=== PATIENT | female | born 1960 | race Caucasian/White ===

== ENCOUNTER 2016-08-05 19:54 | Inpatient (IN) | payer MEDICARE, BC ==
--- NOTE | ~2016-08-05 | CR72 ---
[facility] A Service of [facility] RADIOLOGY TEXT RESULTS PATIENT: HUYEN CORRALES LOCATION: [facility] : 56 UNIT #: [id number] AGE: [address]: Corina Burton MD SEX: F ORDER DR: [id number] [facility] [address] [facility]. [place], [place] [address] [id number] I MR#: [id number] Acc #: [id number] NAME: HUYEN CORRALES : 1960 SEX: F STUDY DATE/TIME: 08/05/2016 21:03 UNIT: [facility] ROOM: [facility] STUDY DESCRIPTION: CR Chest Single View Portable Attending Physician: Corina Burton M.D. Ordering Physician: Nasreen Pryor M.D. Primary Care Physician: Edward Ramos M.D. MEDICAL IMAGING REPORT This report is preliminary unless electronic signature is present EXAM Portable chest HISTORY Lethargy, shortness of air and confusion today. FINDINGS Cardiac size and pulmonary vascularity are normal. No infiltrates or effusions are identified. Mild bibasilar linear atelectasis or scarring. Mild mid-right thoracic curve. IMPRESSION No acute findings. No active disease. Mild bibasilar linear atelectasis or scarring. Dictated by... Demian Nieto M.D. THIS IS AN ELECTRONICALLY VERIFIED REPORT Demian Nieto M.D. at 08/06/2016 10:34 PM DFL/to TD: 08/06/2016 08:26 JOB #: [id number] MEDICAL IMAGING REPORT Page 1 of 1 COPY
--- NOTE | ~2016-08-05 | EKG ---
PATIENT: HUYEN CORRALES UNIT #: [id number] Ventricular Rate: 87 BPM Atrial Rate: 87 BPM P-R Interval: 158 ms QRS Duration: 98 ms Q-T Interval: 404 ms QTC Calculation(Bezet): 486 ms P Berea: 26 degrees Calculated R Berea: -25 degrees Calculated T Berea: 29 degrees Diagnosis Line: Normal sinus rhythm Diagnosis Line: Low voltage QRS Diagnosis Line: Prolonged QT Diagnosis Line: Abnormal ECG Diagnosis Line: When compared with ECG of 18-OCT-2015 12:03, Diagnosis Line: No significant change was found Diagnosis Line: Confirmed by SEBLE HEREDIA MD ([id number]) on Diagnosis Line: 08/06/2016 10:05:56 PM INTERPRETING : DAQUAN
--- NOTE | ~2016-08-05 | CO ---
Unit #: [id number] #: [id number] Patient: KALEIGH MAGAÑA [id number] [address] [place], [place] [address] [id number] I MR#: [id number] NAME: KALEIGH MAGAÑA ROOM: 579 Age: 56 Sex: F Admission Date: 08/05/2016 : 1960 Attending Physician: Corina Burton M.D. Primary Care Physician: Edward Ramos M.D. Consultation Date: 08/07/2016 CONSULTATION REPORT REASON FOR CONSULTATION Followup. DISCUSSION Ms. Kaleigh Magaña is a 56-year-old white female, seen in room 579, bed 1 on 08/07/2016. The patient was transferred from ICU, feeling much better. The patient dressed in hospital attire, sitting in a propped up position, eating her breakfast. The patient compliant and cooperative. Denied any suicidal or homicidal ideation. Reports feeling much better. The patient was admitted with altered mental status secondary to polypharmacy. The patient denied any Intentional taking medication. Denied any suicidal or homicidal ideation. Denied any psychotic symptom at this time. REVIEW OF SYSTEMS Complete review of systems is unremarkable. MENTAL STATUS EXAMINATION Vital signs; temperature 98.6, pulse 93, respirations 16, blood pressure 116/50, oxygen saturation 98%. General appearance; the patient moderately obese, dressed casually in hospital attire, sitting comfortably in bed. Attention span and concentration, fair. Speech, regular rate and coherent. Oriented in time, place, and person. Mood and affect, sad and dysphoric. Thought process, coherent. Thought content, the patient denied any thoughts of harming self or others or any psychotic symptom. Recent and remote memory, fair. Language, intact. Fund of knowledge, fair. Insight and judgment, fair to slightly impaired. DIAGNOSIS Psychiatric: Major depressive disorder, recurrent, severe, F33.2. ASSESSMENT/PLAN 1. Supportive psychotherapy and psychoeducation provided to the patient. 2. Educated about benefits and side effects of medication and course and prognosis of illness. 3. Advised the patient to follow up on the outpatient basis upon discharge and advised not to take Adderall. Advised to take only hydroxyzine 25 mg t.i.d. p.r.n. for anxiety. The patient was also given crisis line #[id number]. Dictated by... Kendrick Negrete M.D. Unit #: [id number] #: [id number] Patient: KALEIGH MAGAÑA LUCINDA/modl TD: 08/07/2016 23:35 JOB #: [id number] CONSULTATION REPORT Page 1 of 1 X Kendrick Negreet MD X CONSULTATION REPORT
--- NOTE | ~2016-08-05 | HP ---
Unit #: [id number] #: [id number] Patient: HUYEN MAGAÑA [id number] [address] [place], [place] [address] [id number] I MR#: [id number] NAME: HUYEN MAGAÑA ROOM: 579 Age: 56 Sex: F Admission Date: 08/05/2016 : 1960 Attending Physician: Corina Burton M.D. Primary Care Physician: Dr. Aguirre HISTORY AND PHYSICAL PRINCIPAL DIAGNOSES 1. Altered mental status secondary to polypharmacy. 2. Polypharmacy, likely a combination of both unintentional and intentional. 3. Acute hypoxic respiratory failure secondary to altered mental status, now resolved. 4. Hypotension, likely medication induced. 5. Hypokalemia, resolved. 6. Diabetes mellitus type 2, insulin requiring with pending hemoglobin A1C. 7. Depression. 8. Chronic pain syndrome, maintained on narcotics. 9. Obesity. 10. Obstructive sleep apnea with reported recent normal polysomnography. 11. Mild protein malnutrition. 12. Chronic deconditioning. CONSULTANTS 1. Dr. Briceño, pulmonology. 2. Dr. Negrete, psychiatry. DIAGNOSTIC STUDIES IMAGING: CT of the head without contrast on August 05, 2016 with no acute intracranial abnormality. Mild diffuse chronic changes noted. Chest x-ray on August 05, 2016 with no acute findings. Bibasilar linear atelectasis noted. CLINICAL HISTORY AND HOSPITAL COURSE Ms. Magaña is a 56-year-old female who presents to the emergency department after being found with significantly decreased mental status in a [employer]. Please refer to H and P for further details. Patient was found to be hypoxic and hypercapnic and was placed on BiPAP initially and admitted to the ICU. Dr. Briceño was consulted given the patient's hypoxia and hypercapnia; however, with BiPAP therapy and holding of many sedating medications, patient's mental status returned to normal. She was transitioned to off BiPAP to oxygen, and now oxygen saturations are in the high 90s off of oxygen therapy. There has been no evidence of pneumonia, no evidence of aspiration and no need for antibiotic therapy. In regard to the patient's altered mental status, the patient underwent cardiac evaluation with serial troponins, screening for infectious Unit #: [id number] #: [id number] Patient: HUYEN MAGAÑA etiology, and all this was negative. However, the patient is on multiple sedating medications at home. While obtaining medications, I was informed by pharmacy that the patient, on the day she was found at [facility], was also asking for large amounts of Dramamine and Benadryl. However, the patient does not directly state she was trying to hurt herself. I did have her evaluated by Dr. Negrete of psychiatry who recommended holding all of her sedating medications and further evaluation with her primary psychiatrist, Dr. Jose Varner, as an outpatient. I will also note the patient was recently prescribed 360 tablets of a benzodiazepine, but these were not in her system during hospitalization. The patient also developed some mild hypotension, likely medication inducted in combination with, what she states is, chronic hypotension. I am going to hold all of her medications which induce hypotension, and blood pressure can be monitored by home health nurse at home. The patient today is clinically stable. She has been seen by physical therapy, is at her baseline and will be discharged home today. DISCHARGE CONDITION Stable. DISCHARGE STATUS Discharge to home with home health. DISCHARGE MEDICATIONS (significantly reduced and include) 1. Lamictal 200 mg b.i.d. 2. Hydroxyzine 25 mg p.o. t.i.d. p.r.n. anxiety. 3. Senokot S 1 tablet daily p.r.n. constipation. 4. Docusate 1 tab p.o. daily p.r.n. constipation. 5. Lantus 34 units subcutaneously b.i.d. 6. Axid 150 mg b.i.d. 7. Lortab 10/325 mg 1 tablet p.o. q.i.d. p.r.n. pain. 8. Lansoprazole 30 mg b.i.d. 9. Os-Miguel 500 plus D 1 b.i.d. 10. Klor-Con sprinkle 1 tablet b.i.d. 11. Flexeril 10 mg p.o. t.i.d. p.r.n. muscle spasm. 12. Vitamin D3 Dots 2,000 units p.o. daily. NOTE: Of note, I have discontinued black cohosh, Imdur ER, Bumex, Metoprolol, Klonopin, Compazine, Phenergan and Cymbalta. I will note these are the only medications we are aware of through [facility] pharmacy. Patient also has a mail order pharmacy, and these medications are unclear. Adderall has also been discontinued per Dr. Negrete's recommendations. DISCHARGE INSTRUCTIONS Patient instructed to follow a heart healthy, constant carb diet. She will continue Accu-Cheks a.c. and h.s. at home. She can increase her activity as tolerated at home and should not be changed from these medications until seen by her primary physician. FOLLOW-UP 1. Patient will follow up with her primary care provider, which she believes is Dr. Aguirre, in one week. 2. She will follow up with her primary psychiatrist, Dr. Jose Varner, in 1 week, as well, to reinitiate medications. NOTE: Time spent on discharge - 33 minutes. Unit #: [id number] #: [id number] Patient: HUYEN MAGAÑA Dictated by Geovanna Goff/logan TD: 08/07/2016 11:06 JOB #: [id number] CC: Dr. Jose Varner, Psychiatrist Edward Ramos M.D. HISTORY AND PHYSICAL Page 1 of 1 X Corina Burton MD X HISTORY AND PHYSICAL
--- NOTE | ~2016-08-05 | CO ---
Unit #: [id number] #: [id number] Patient: KALEIGH MAGAÑA [id number] [facility] [address] [facility]. [place], [place] [address] [id number] I MR#: [id number] NAME: KALEIGH MAGAÑA ROOM: 579 Age: 56 Sex: F Admission Date: 08/05/2016 : 1960 Attending Physician: Corina Burton M.D. Primary Care Physician: Edward Ramos M.D. Consultation Date: 08/06/2016 CONSULTATION REPORT REASON FOR CONSULTATION Depression and overdose. HISTORY OF PRESENT ILLNESS Ms. Kaleigh Magaña is a 56-year-old white female, seen in CCU-2, bed 2 at [facility] on 08/06/2016. The patient was lying comfortably in bed, moderately wheeze, receiving oxygen through nasal cannula. The patient reported that she was at [facility], stumped over, sleepy. The patient was subsequently brought here. Apparently, the patient was taking too much medications. The patient denied any suicide attempt, but currently medications are not working. The patient reports that she sees Dr. Jose Varner for outpatient. The patient also reported that she was once seen in our outpatient program, but according to the reports from [facility], the patient was last seen at [facility] on 07/14/2009 and diagnosed with major depressive disorder. The patient was not seen recently. The patient's vital signs; temperature 98.4, pulse 69, respirations 14, blood pressure 85/69, and oxygen saturation 99%. The patient denied any use of any drugs or alcohol. Denied any street drugs. Apparently, taking too much of her psych medications. PAST PSYCHIATRIC HISTORY Remarkable for history of depression, history of inpatient treatment in the past. No history of any suicide attempt. MEDICAL HISTORY Remarkable for insulin-dependent diabetes, hypertension, anxiety, depression, chronic pain, coronary artery disease, obstructive sleep apnea, and obesity. ALLERGIES To propoxyphene, Darvocet, statin, codeine, and aspirin. MEDICATIONS The patient is on duloxetine, Bumex, potassium chloride, iron supplement, Flexeril, Klonopin, Senokot, metoprolol, lansoprazole, lamotrigine, Imdur, Lantus, hydrocodone, Phenergan, and also takes Adderall 30 mg b.i.d. FAMILY HISTORY AND SOCIAL HISTORY The patient has a good support system. No history of abuse. Denied any use of any alcohol or any street drugs. REVIEW OF SYSTEMS A complete review of systems is unremarkable. Unit #: [id number] #: [id number] Patient: KALEIGH MAGAÑA MENTAL STATUS EXAMINATION Vital signs; please see above. General appearance; the patient dressed in hospital attire, lying comfortably in bed, pleasant and cooperative during interview, made good eye contact. Attention span and concentration, fair. Speech; regular rate and coherent. Oriented in time, place, and person. Mood and affect; sad, dysphoric, and anxious. Thought process, coherent. Thought content; the patient denied any thoughts of harming self or others. Denied any auditory or visual hallucination, but still feeling sad and depressed. Recent and remote memory, fair. Language, intact. Fund of knowledge, fair. Insight and judgment, fair to slightly impaired. DIAGNOSES Psychiatric: Major depressive disorder, recurrent, severe, F33.2. Secondary diagnosis: Deferred. Medical diagnosis: Please refer to H and P. Stressors: Psychosocial stressor. ASSESSMENT AND PLAN 1. Supportive psychotherapy and psychoeducation provided to the patient. 2. Educated about benefits and side effects of medication and course and prognosis of illness. 3. Advised to discontinue all psychotropic medication at this time, Klonopin, Cymbalta and Adderall. We will monitor the patient's mood and behavior after the patient is medically stable. If needed, consider further adjustment of medication. The patient to continue with the inpatient treatment. We will continue to follow. Please feel free to call if any questions, telephone #[phone]. Dictated by... Geovanna Vogel/delfino TD: 08/07/2016 14:54 JOB #: [id number] CONSULTATION REPORT Page 1 of 1 X Kendrick Negrete MD X CONSULTATION REPORT
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
--- NOTE | ~2016-08-05 | CT71 ---
[facility] A Service of [facility] RADIOLOGY TEXT RESULTS PATIENT: HUYEN CORRALES LOCATION: [facility] 579-01 : 56 UNIT #: [id number] AGE: [address]: Corina Burton MD SEX: F ORDER DR: [id number] [place] [facility]. [place], [place] [address] [id number] I MR#: [id number] Acc #: [id number] NAME: HUYEN CORRALES : 1960 SEX: F STUDY DATE/TIME: 08/05/2016 21:47 UNIT: [facility] ROOM: [facility] STUDY DESCRIPTION: CT Head Wo Contrast Attending Physician: Corina Burton M.D. Ordering Physician: Nasreen Pryor M.D. Primary Care Physician: Edward Ramos M.D. MEDICAL IMAGING REPORT This report is preliminary unless electronic signature is present EXAM CT head, noncontrast, 08/05/2016 HISTORY 56-year-old female in the ED with decreased level of consciousness, lethargy and weakness with new onset prior to arrival. TECHNIQUE CT examination of the head without IV contrast. This CT exam was performed with one or more of the following radiation dose reduction techniques: automatic exposure control, adjustment of mA and/or kV according to patient size, and iterative reconstruction. FINDINGS No acute intracranial abnormality is identified. Mild generalized cerebral atrophy. Minimal diffuse low-attenuation white matter changes are nonspecific but likely related to chronic small vessel disease. No evidence of intracranial hemorrhage, mass, mass effect, acute cerebral edema or hydrocephalus. IMPRESSION 1. No acute intracranial abnormality. 2. Mild diffuse chronic changes as noted above. Dictated by... Epifanio Antoine M.D. THIS IS AN ELECTRONICALLY VERIFIED REPORT Epifanio Antoine M.D. at 08/06/2016 9:55 PM RGW/to [facility] A Service of [facility] RADIOLOGY TEXT RESULTS PATIENT: HUYEN CORRALES LOCATION: [facility] 579-01 : [birth year] UNIT #: [id number] AGE: [address]: Corina Burton MD SEX: F ORDER DR: TD: 08/06/2016 09:26 JOB #: [id number] MEDICAL IMAGING REPORT Page 1 of 1 COPY
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
[~2016-08-05 19:54] MED LIST: ATARAX PO; AXID150 MG PO; BACTRIM DS TABL1 TA1 PO; BLACK COHOSH PO; BUMETANIDE2 M1 PO; COMPAZINE10 M1 PO; D3 DOTS2000 UNIT PO; DULOXETINE HCL60 M1 PO; FLEXERIL10 MG PO; HYDROCODON-ACE1 EAC5 PO; IMDUR-ER60 M3 PO; IRON SUPPLEMENT PO; KLONOPIN1 M1 PO; KLOR-CON SPRINK8 MEQ PO; LAMOTRIGINE200 MG PO; LANSOPRAZOLE30 M3 PO; LANTUS100 UNITS/ SUBQ; METOPROLOL TAR25 MG PO; NOVOLOG FL100 UNIT/1; PHENERGAN25 M1 PO; SENOKOT S1 TA1 PO; STOOL SOFTENER50 MG PO
[2016-08-05 20:57] LABS: URINE SOURCE CLEAN CATCH
[2016-08-05 21:02] LABS: ARTERIAL BLD GAS O2 SATURATION 92.4 % (90.0-100.0); ARTERIAL BLOOD GAS ART SITE RIGHT BRACHIAL; ARTERIAL BLOOD GAS CARBOXY HB 0.9 %sat (0.0-9.0); ARTERIAL BLOOD GAS DELIVERY ROOM AIR; ARTERIAL BLOOD GAS HCO3 29.7 mmol/L; ARTERIAL BLOOD GAS MET HB 0.6 %sat (0.0-2.0); ARTERIAL BLOOD GAS PCO2 51.8 mmHg (35.0-45.0); ARTERIAL BLOOD GAS PO2 65.9 mmHg (80.0-100); ARTERIAL BLOOD GAS pH 7.367 (7.350-7.450); ARTERIAL DRAW? YES
[2016-08-05 21:03] LABS: URINE APPEARANCE CLEAR; URINE BILIRUBIN NEG (NEG); URINE BLOOD NEG (NEG); URINE COLOR YELLOW; URINE GLUCOSE 500 MG/DL (NEG); URINE KETONE NEG (NEG); URINE LEUKOCYTE ESTERASE NEG (NEG); URINE NITRATE NEG (NEG); URINE PROTEIN NEG (NEG); URINE SPECIFIC GRAVITY 1.012 (1.003-1.035); URINE UROBILINOGEN 0.2 MG/DL (NEG)
[2016-08-05 21:07] LABS: BASOPHIL# 0.1 X10e3 (0-0.3); BASOPHIL% 0.7 % (0-2.5); EOSINOPHIL# 0.1 X10e3 (0-0.7); EOSINOPHIL% 1.1 % (0.0-7.0); HEMOGLOBIN 11.5 gm/dL (12.0-16.0); LYMPHOCYTE# 1.7 X10e3 (1.0-3.5); LYMPHOCYTE% 21.9 % (17.0-45.0); MEAN CORPUSCULAR HEMOGLOBIN 31.3 PG (28-34); MEAN PLATELET VOLUME 7.3 FL (6.5-11.5); MONOCYTE# 0.5 X10e3 (0-1.0); MONOCYTE% 6.9 % (3.0-12.0); NEUTROPHIL# 5.3 X10e3 (1.5-7.1); NEUTROPHIL% 69.4 % (40-75); PLATELET COUNT 258 X10e3 (140-420); RED BLOOD COUNT 3.68 X10e (3.90-5.30); RED CELL DISTRIBUTION WIDTH 14.2 % (11.0-15.5); WHITE BLOOD COUNT 7.6 X10e3 (4.0-10.5)
[2016-08-05 21:09] LABS: DIFF IND NO
[2016-08-05 21:09] LABS: CULTURE INDICATED? NO
[2016-08-05 21:18] LABS: AMPHETAMINE POS (NEG); BARBITURATES NEG (NEG); BENZODIAZEPINES NEG (NEG); COCAINE NEG (NEG); MARIJUANA NEG (NEG); OPIATES NEG (NEG); TRICYCLIC ANTIDEPRESSANTS POS (NEG); U METHADONE NEG (NEG)
[2016-08-05 21:22] LABS: PARTIAL THROMBOPLASTIN TIME 24.4 SECONDS (23.5-31.3); PROTHROMBIN TIME (PATIENT) 10.6 SECONDS (9.6-11.5)
[2016-08-05 21:31] LABS: ALBUMIN SERUM 3.4 g/dL (3.5-5.0); ALKALINE PHOSPHATASE 98 U/L (32-92); ALT (SGPT) 17 U/L (10-40); AST (SGOT) 24 U/L (10-42); BILIRUBIN,TOTAL 0.5 mg/dL (0.2-2.0); BLOOD UREA NITROGEN 13 mg/dL (9-23); BUN/CREATININE RATIO 11.81; CALCIUM SERUM 8.2 mg/dL (8.4-10.2); CARBON DIOXIDE 28 mmol/L (22-31); CHLORIDE 97 mmol/L (100-111); CREATININE SERUM 1.1 mg/dL (0.6-1.4); GLOM FILT RATE Estimated 55.3 mL/min (>60); GLUCOSE FASTING 305 mg/dL (70-110); PROTEIN TOTAL SERUM 6.1 g/dL (6.0-8.3); SODIUM 135 mmol/L (135-145)
[2016-08-05 21:32] LABS: BILIRUBIN, DIRECT <0.1 mg/dL (0.0-0.2); BILIRUBIN,INDIRECT 0.4 mg/dL (0.0-0.9); POTASSIUM 2.7 mmol/L (3.5-5.1)
[2016-08-05 21:36] LABS: POC - CKMB 6.5 ng/mL (0.0-7.9); POC - TROPONIN <0.05 ng/mL (<=0.05)
[2016-08-05 23:01] LABS: ARTERIAL BLD GAS O2 SATURATION 99.1 % (90.0-100.0); ARTERIAL BLOOD GAS ALLEN TEST NORMAL; ARTERIAL BLOOD GAS ART SITE RIGHT RADIAL; ARTERIAL BLOOD GAS CARBOXY HB 0.6 %sat (0.0-9.0); ARTERIAL BLOOD GAS HCO3 32.1 mmol/L; ARTERIAL BLOOD GAS MET HB 0.7 %sat (0.0-2.0); ARTERIAL BLOOD GAS PCO2 53.4 mmHg (35.0-45.0); ARTERIAL BLOOD GAS pH 7.388 (7.350-7.450); ARTERIAL DRAW? YES
[2016-08-06 00:05] LABS: POC - CKMB 4.6 ng/mL (0.0-7.9); POC - TROPONIN <0.05 ng/mL (<=0.05)
[2016-08-06 01:16] LABS: BASOPHIL# 0.1 X10e3 (0-0.3); BASOPHIL% 0.8 % (0-2.5); DIFF IND NO; EOSINOPHIL# 0.1 X10e3 (0-0.7); EOSINOPHIL% 2.3 % (0.0-7.0); HEMATOCRIT 33.8 % (35.0-45.0); HEMOGLOBIN 11.1 gm/dL (12.0-16.0); LYMPHOCYTE# 2.2 X10e3 (1.0-3.5); LYMPHOCYTE% 35.1 % (17.0-45.0); MEAN CORPUSCULAR HEMOGLOBIN 31.1 PG (28-34); MEAN CORPUSCULAR HGB CONC 32.7 g/dL (30-36); MEAN PLATELET VOLUME 6.9 FL (6.5-11.5); MONOCYTE# 0.5 X10e3 (0-1.0); MONOCYTE% 7.3 % (3.0-12.0); NEUTROPHIL# 3.5 X10e3 (1.5-7.1); NEUTROPHIL% 54.5 % (40-75); PLATELET COUNT 233 X10e3 (140-420); RED BLOOD COUNT 3.56 X10e (3.90-5.30); WHITE BLOOD COUNT 6.4 X10e3 (4.0-10.5)
[2016-08-06 01:42] LABS: BUN/CREATININE RATIO 12.22; CALCIUM SERUM 7.8 mg/dL (8.4-10.2); CREATININE SERUM 0.9 mg/dL (0.6-1.4); GLOM FILT RATE Estimated 70.5 mL/min (>60); MAGNESIUM 1.9 mg/dL (1.6-3.0); POTASSIUM 3.1 mmol/L (3.5-5.1)
[2016-08-06 13:39] LABS: MAGNESIUM 2.5 mg/dL (1.6-3.0); POTASSIUM 4.3 mmol/L (3.5-5.1)
[2016-08-07 07:49] LABS: BASOPHIL% 0.5 % (0-2.5); EOSINOPHIL# 0.2 X10e3 (0-0.7); EOSINOPHIL% 2.4 % (0.0-7.0); HEMATOCRIT 35.6 % (35.0-45.0); HEMOGLOBIN 11.6 gm/dL (12.0-16.0); LYMPHOCYTE# 1.5 X10e3 (1.0-3.5); LYMPHOCYTE% 23.6 % (17.0-45.0); MEAN CELL VOLUME 96.4 FL (83-96); MEAN CORPUSCULAR HEMOGLOBIN 31.5 PG (28-34); MEAN CORPUSCULAR HGB CONC 32.6 g/dL (30-36); MEAN PLATELET VOLUME 7.3 FL (6.5-11.5); MONOCYTE# 0.3 X10e3 (0-1.0); MONOCYTE% 5.2 % (3.0-12.0); NEUTROPHIL# 4.2 X10e3 (1.5-7.1); NEUTROPHIL% 68.3 % (40-75); PLATELET COUNT 234 X10e3 (140-420); RED CELL DISTRIBUTION WIDTH 13.9 % (11.0-15.5); WHITE BLOOD COUNT 6.2 X10e3 (4.0-10.5)
[2016-08-07 07:57] LABS: DIFF IND NO
[2016-08-07 08:16] LABS: BUN/CREATININE RATIO 11.25; CALCIUM SERUM 8.7 mg/dL (8.4-10.2); CREATININE SERUM 0.8 mg/dL (0.6-1.4); GLOM FILT RATE Estimated 81.3 mL/min (>60); MAGNESIUM 2.1 mg/dL (1.6-3.0); POTASSIUM 4.6 mmol/L (3.5-5.1)
[2016-08-07] MEDS ORDERED: ACETAMINOPHEN PO (14:07)
[2016-08-07] MEDS ORDERED: CALCIUM 500 +1 EACH PO (14:08)
== END 2016-08-07 16:44 | disposition home or self-care (01) | DRG 917 ==
LOC: CED 19:54 → CICCU2 23:59 → CEDOF 23:59 → C5C 23:59 → CED 08-06 00:28 → CEDOF 08-06 00:28 → CICCU2 08-06 04:44 → C5C 08-06 19:06
PROVIDERS: Emergency Medicine; Internal Medicine; Nurse Practitioner
PROC: 5A09357 Assistance with Respiratory Ventilation, Less than 24 Consecutive Hours, Continuous Positive Airway Pressure (ICD-10-PCS; principal; 2016-08-05)
DX: T43.501A Poisoning by unspecified antipsychotics and neuroleptics, accidental (unintentional), initial encounter (principal); J96.01 Acute respiratory failure with hypoxia; J96.02 Acute respiratory failure with hypercapnia; I95.2 Hypotension due to drugs; E44.1 Mild protein-calorie malnutrition; R13.11 Dysphagia, oral phase; Z90.710 Acquired absence of both cervix and uterus; Z98.49 Cataract extraction status, unspecified eye; E11.9 Type 2 diabetes mellitus without complications; I10 Essential (primary) hypertension; F41.9 Anxiety disorder, unspecified; F32.9 Major depressive disorder, single episode, unspecified; M54.9 Dorsalgia, unspecified; I25.10 Atherosclerotic heart disease of native coronary artery without angina pectoris; G47.33 Obstructive sleep apnea (adult) (pediatric); E66.9 Obesity, unspecified; Z88.4 Allergy status to anesthetic agent; Z88.5 Allergy status to narcotic agent; Z88.8 Allergy status to other drugs, medicaments and biological substances; Z79.4 Long term (current) use of insulin; E87.6 Hypokalemia; G89.4 Chronic pain syndrome
CPT/HCPCS: 36600; 70450; 71010; 80048; 80076; 80307; 81003; 82140; 82553; 82803; 82947; 83036; 83735; 84132; 84295; 84484; 85025; 85610; 85730; 92610; 93005; 94660; 94760; 97162; C9113; G0480; G8978-GP; G8979-GP; G8980-GP; G8996-GN; G8997-GN; G8998-GN; J1650; J1815; J2310; J3475